=== PATIENT | male | born 1985 | race Hispanic/Latino ===

== ENCOUNTER 2018-09-21 02:30 | Emergency (ER) | payer OTHER ==
[2018-09-21] MEDS ORDERED: LIDOCAINE HCL 1% 20 ML VIAL ONE (03:46)
[2018-09-21] MEDS ORDERED: HYDROCODONE/ACETAMINOPHEN 10/325 MG TAB ONE (03:47)
== END 2018-09-21 04:37 | disposition home or self-care (01) ==
LOC: EDH 02:30
DX: K61.1 Rectal abscess (principal); Z72.0 Tobacco use
CPT/HCPCS: 46040